=== PATIENT | female | born 1980 | race African-American/Black ===

== ENCOUNTER 2017-10-31 19:17 | Emergency (ER) | payer BC, OTHER ==
[~2017-10-31] VITALS: Ht 167.6 cm; Wt 49.9 kg
[2017-10-31 19:17] VITALS: BP 150/92
== END 2017-10-31 20:51 | disposition home or self-care (01) ==
LOC: ER 19:19
DX: Z11.6 Encounter for screening for other protozoal diseases and helminthiases (principal)
CPT/HCPCS: 36415; 87207; 99283; A4606; Z7610